=== PATIENT | male | born 1995 | race Caucasian/White ===

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

== ENCOUNTER 2017-12-24 00:38 | Emergency (ER) | payer OTHER ==
--- NOTE | 2017-12-24 01:34 | EDPHY ---
H & P Stated Complaint: R THUMB LACERATION Time Seen by Provider: 12/24/17 01:21 HPI/ROS: HPI: The patient presents with left thumb laceration which occurred just prior to arrival while he was using a knife to cut fruit. He inadvertently is cut his thumb and had significant bleeding so comes to the emergency department. He denies any numbness or tingling. He has minimal pain. REVIEW OF SYSTEMS Constitutional: No fever, no chills. Eyes: No discharge. ENT: No sore throat. Cardiovascular: No chest pain, no palpitations. Respiratory: No cough, no shortness of breath. Gastrointestinal: No abdominal pain, no vomiting. Genitourinary: No hematuria. Musculoskeletal: No back pain. Skin: No rashes. Neurological: No headache. PMHx: Healthy TRAUMA PHYSICAL General Appearance: Alert, no distress Head: Atraumatic Respiratory: Breathing comfortably Skin: Left thumb with 4 cm laceration across the proximal phalanx on the dorsal aspect which is gaping Extremities: Non-tender, full range of motion of his thumb with no tendon injury identified, no foreign body visualized. Neurological: A&Ox3, GCS=15,normal motor function with 5/5 strength in all 4 extremities, normal sensory exam Source: Patient Exam Limitations: No limitations - Personal History Current Tetanus Diphtheria and Acellular Pertussis (TDAP): Yes - Medical/Surgical History Hx Asthma: No Hx Chronic Respiratory Disease: No Hx Diabetes: No Hx Cardiac Disease: No Hx Renal Disease: No Hx Cirrhosis: No Hx Alcoholism: No Hx HIV/AIDS: No Hx Splenectomy or Spleen Trauma: No Other PMH: DENIES - Social History Smoking Status: Current every day smoker Constitutional: Initial Vital Signs Temperature (C) 36.5 C 12/24/17 00:50 Heart Rate 89 12/24/17 00:50 Respiratory Rate 18 12/24/17 00:50 Blood Pressure 128/79 H 12/24/17 00:50 O2 Sat (%) 97 12/24/17 00:50 O2 Delivery Mode Room Air Allergies/Adverse Reactions: No Known Allergies Allergy (Verified 12/24/17 00:50) Home Medications: Medication Instructions Recorded Miscellaneous Medical Supply [NO 1 ea MISC AD 01/09/12 HOME MEDS] Hydrocodone/APAP 5/325 [[place] 1 - 2 tab PO Q6H PRN #14 tab 04/15/16 5/325 (*)] Medical Decision Making Procedures: LACERATION REPAIR Procedure: Laceration repair. Verbal consent was obtained from the patient. The linear 4 cm laceration on the left thumb was anesthetized using bupivacaine without epinephrine. The wound was scrubbed, draped and explored to its base with a gloved finger. There were no deep structures involved. No tendon injury was identified. . The wound was repaired with 4-0 nylon horizontal mattress sutures. The wound repair was complex. The procedure was performed by myself. Differential Diagnosis: 22-year-old healthy male presents after cutting himself accidentally with a knife while chopping fruit. He does not appear to have any neurovascular injury. Tendons are intact. Plan for laceration repair here. Departure - Departure Clinical Impression: Alcohol intoxication delirium Laceration of thumb Qualifiers: Encounter type: initial encounter Damage to nail status: without damage Foreign body presence: without foreign body Laterality: right Qualified Code(s) : S61.011A - Laceration without foreign body of right thumb without damage to nail, initial encounter Condition: Good Instructions: Care For Your Stitches (ED), Laceration (ED) Additional Instructions: Please return in 7 days to have your stitches removed. If you develop any redness, swelling, warmth, tenderness of the wound that he need to return to the emergency department. I have given you information for the hand specialist if you have any difficulty moving your thumb or with the wound you can follow up with him. Referrals: [facility],. [Clinic] - As per Instructions Joel Ortega MD [Medical Doctor] - As per Instructions
[2017-12-24 02:44] VITALS: BP 114/66
== END 2017-12-24 02:43 | disposition home or self-care (01) ==
PROC: 0HQFXZZ Repair Right Hand Skin, External Approach (ICD-10-PCS; principal; 2017-12-24)
DX: S61.011A Laceration without foreign body of right thumb without damage to nail, initial encounter (principal); F10.920 Alcohol use, unspecified with intoxication, uncomplicated; W26.0XXA Contact with knife, initial encounter; Y93.G1 Activity, food preparation and clean up; Y99.8 Other external cause status
CPT/HCPCS: L3925

== ENCOUNTER 2018-02-05 18:15 | Emergency (ER) | payer OTHER ==
--- NOTE | 2018-02-05 18:59 | EDPHY ---
H & P Time Seen by Provider: 02/05/18 18:25 HPI/ROS: CHIEF COMPLAINT: "I think I have an infection on my thumb" HISTORY OF PRESENT ILLNESS: 22-year-old immunocompetent male seen initially in the ER on 12/24/2017 for laceration to the dorsal right thumb when he was cutting fruit. At that time he had sutures placed which were subsequently removed. He notes that for the past 2 weeks he has had erythema with scant amount of discharge. Was seen at [facility] and given prescription for antibiotics which he completed however discharge continues. He has full pain-free range of motion. No lymphangitic streaking. No fever no chills. No nausea or vomiting. PHYSICAL EXAM (Prior to examination, patient consented to physical exam, hands were washed and my usual and customary physical exam procedures followed) 1) GENERAL: Well-developed, well-nourished, alert and oriented. Appears to be in no acute distress. 2) HEAD: Normocephalic 3) HEENT: sclera anicteric 4) LUNGS: Breathing comfortably. 5) SKIN: Right dorsal thumb linear scar with what appears to be a Vicryl suture emanating from the wound approximately 1 mm. There is a head on this lesion and same area. Negative kanavel. No crepitus. No pain with range of motion of the MCP or IP joints. No pain with axial loading of same joints. No evidence of felon. No evidence of diffuse cellulitis. No underlying osseous discomfort. Smoking Status: Current every day smoker Constitutional: Initial Vital Signs Temperature (C) 37.1 C 02/05/18 18:17 Heart Rate 82 02/05/18 18:17 Respiratory Rate 16 02/05/18 18:17 Blood Pressure 127/70 H 02/05/18 18:17 O2 Sat (%) 96 02/05/18 18:17 O2 Delivery Mode Room Air Allergies/Adverse Reactions: No Known Allergies Allergy (Verified 12/24/17 00:50) Home Medications: Medication Instructions Recorded Cephalexin [Keflex] 500 mg PO TID 10 Days cap 02/05/18 Sulfamethox/Tmp 800/160 mg 1 tab PO BID@1000,2200 10 Days tab 02/05/18 [Bactrim Ds] MDM/Departure - MDM Imaging Results: Imaging Impressions Finger X-Ray 02/05/18 18:59 Impression: No acute osseous findings. Images reviewed myself Medications Given: Discontinued Medications Cephalexin (Keflex 500 Mg Prepack#4) 1 btl TAKEHOME EDNOW ONE PRN Reason: Protocol Stop: 02/05/18 19:47 Last Admin: 02/05/18 19:51 Dose: 1 btl Trimethoprim/Sulfamethoxazole (Bactrim Ds Prepack#2) 1 btl TAKEHOME EDNOW ONE Stop: 02/05/18 19:47 Last Admin: 02/05/18 19:52 Dose: 1 btl ED Course/Re-evaluation: I reviewed the patient's old medical records. The patient's medical records indicate wound is closed with nylon sutures on 12/24/2017. White and visualized on exam seems to be possibly an absorbable suture, possibly Vicryl. This maybe adenitis 7 section. There was a head on the wound which was unroofed and cultured, scant amount of white purulent discharge obtained and sent to laboratory. Negative kanavel sign. I do not think that hospitalization is indicated. I am initiating antibiotics with Keflex and Bactrim. Today is Wednesday. I recommend he see on-call hand surgery Dr. Darrian Jaam on Wednesday or Wednesday of this wound may need to be reopened and explored. I do not think this needs to occur on an emergent basis. Usual customary wound precautions instructions provided. He feels comfortable being discharged. I saw this patient independently based on established practice protocols. Care of patient under supervision of secondary supervising physician Dr Ray . - Depart Disposition: Home, Routine, Self-Care Clinical Impression: Right thumb infected wound Condition: Good Instructions: Cephalexin (By mouth), Sulfamethoxazole/Trimethoprim (By mouth), Wound Infection (ED) Additional Instructions: Return to the ER if you develop redness, swelling, discharge, warmth to the wound, red streaks going up your arm, or any other symptoms that concern you. Prescriptions: Cephalexin [Keflex] 500 mg PO TID 10 Days cap Sulfamethox/Tmp 800/160 mg [Bactrim Ds] 1 tab PO BID@1000,2200 10 Days tab Referrals: Darrian Jama MD [Medical Doctor] - 02/07/18
[2018-02-05] MEDS ORDERED: SULFAMET/TMP DS PREPACK#2 BTL TAKEHOME ONE ×2 (19:44→19:46)
[2018-02-05] MEDS ORDERED: CEPHALEXIN 500MG PREPACK#4 BTL TAKEHOME ONE ×2 (19:45→19:46)
[2018-02-05 20:01] VITALS: BP 118/67
== END 2018-02-05 20:01 | disposition home or self-care (01) ==
DX: L08.9 Local infection of the skin and subcutaneous tissue, unspecified (principal); F17.200 Nicotine dependence, unspecified, uncomplicated